=== PATIENT | male | born 1960 | race Caucasian/White ===

== ENCOUNTER → 2016-08-20 | Outpatient (CLI) | payer BC ==
--- NOTE | 2016-08-20 11:30 | NM ---
EXAMINATION TYPE: NM stress cardiolite complete DATE OF EXAM: 08/20/2016 10:02 AM COMPARISON: Prior nuclear medicine stress test February 17, 2014. HISTORY: History of hypertension, hypercholesteremia, tobacco use, diabetes, prior single vessel CABG , prior angioplasty, and prior heart attack. Coronary atherosclerosis per order. TECHNIQUE: After the intravenous administration of 10.4 mCi Tc 99m Sestamibi - Rest images obtained 45 minutes post injection. The patient exercised using a LEONIDAS protocol and 1 minute prior to peak exercise was injected with 27.5 mCi Tc 99m Sestamibi - Stress images obtained 30 minutes post injecti on. FINDINGS: Targeted heart rate was achieved during performance of the study. Review of stress and rest SPECT eddie ges demonstrates no distinct perfusion abnormality. Gated analysis shows normal wall motion with an estimated left ventricular ejection fraction of 64 %. IMPRESSION: No scintigraphic evidence for reversible ischemia
--- NOTE | 2016-08-20 13:38 | EST ---
DATE OF SERVICE: 08/20/2016 AGE: 56Y SEX: M HT: 6' WT: 258 lbs. Protocol Dany: X Other: Stress Cardiolite Stage: 2 Dur. of Exercise: 8:15 *Heart Rate Blood Pressure *Rest: 71 Rest: 142/77 * *Max. Achieved: 148 Maximum BP: 215/68 85% PMHR: 139 100% PMHR: 163 *METS: 9.9 INDICATIONS: Physical. MEDICATIONS: - Patient was exercised for a total period of 8 minutes. Peak heart rate of 148 was achieved. Maximum blood pressure of 215/68 mmHg was noted. Resting EKG shows normal sinus rhythm with normal IA interval and QRS duration and normal ST-T waves. No ST-segment depression suggestive of ischemia is noted. The patient did not complain of any chest pain during the test. FINAL IMPRESSION: 1. This stress test is not suggestive of ischemia. 2. Patient's exercise tolerance is normal. 3. Patient did not complain of any anginal pain during the test.
== END ==
LOC: RADNMMAIN 07:48
PROVIDERS: ATTEND Family Medicine
DX: I25.10 Atherosclerotic heart disease of native coronary artery without angina pectoris (principal)
CPT/HCPCS: 93017; 78452; A9500

== ENCOUNTER → 2017-02-01 | Outpatient (CLI) | payer BC ==
[2017-02-01 10:38] LABS: ALT 56 U/L (21-72); AST 24 U/L (17-59); Alkaline Phosphatase 86 U/L (38-126); Anion Gap 10 mmol/L; Blood Urea Nitrogen 17 mg/dL (9-20); Calcium 10.2 mg/dL (8.4-10.2); Carbon Dioxide 27 mmol/L (22-30); Chloride 104 mmol/L (98-107); Cholesterol 151 mg/dL (<200); Glucose 122 mg/dL (74-99); HDL Cholesterol 46 mg/dL (40-60); Non-African American GFR(MDRD) >60 (>60 ml/min/1.73 sqM); Potassium 4.2 mmol/L (3.5-5.1); Sodium 141 mmol/L (137-145); Total Bilirubin 0.6 mg/dL (0.2-1.3); Total Protein 7.2 g/dL (6.3-8.2)
[2017-02-01 11:03] LABS: Prostate Specific Antigen 0.72 ng/mL (0.00-4.00)
[2017-02-01 11:38] LABS: Hemoglobin A1C 6.6 % (4.2-6.1)
== END | disposition home or self-care (01) ==
LOC: LABWHC1 08:32
PROVIDERS: ATTEND Family Medicine
DX: N40.0 Benign prostatic hyperplasia without lower urinary tract symptoms (principal); E11.65 Type 2 diabetes mellitus with hyperglycemia
CPT/HCPCS: 36415; 80053; 80061; 83036; 84153

== ENCOUNTER → 2017-09-03 | Outpatient (CLI) | payer BC ==
[2017-09-03 08:09] LABS: Basophils % (A) 1 %; Eosinophils # (A) 0.1 k/uL (0-0.7); Eosinophils % (A) 1 %; HCT 43.6 % (39.0-53.0); HGB 15.1 gm/dL (13.0-17.5); Lymphocytes # (A) 2.1 k/uL (1.0-4.8); Lymphocytes % (A) 27 %; MCH 30.9 pg (25.0-35.0); MCHC 34.7 g/dL (31.0-37.0); MCV 89.2 fL (80.0-100.0); Monocytes # (A) 0.5 k/uL (0-1.0); Monocytes % (A) 7 %; Neutrophils # (A) 4.9 k/uL (1.3-7.7); Neutrophils % (A) 62 %; Platelet Count 290 k/uL (150-450); RBC 4.89 m/uL (4.30-5.90); WBC 7.9 k/uL (3.8-10.6)
[2017-09-03 08:32] LABS: ALT 38 U/L (21-72); AST 24 U/L (17-59); Albumin 4.5 g/dL (3.5-5.0); Alkaline Phosphatase 83 U/L (38-126); Anion Gap 14 mmol/L; Blood Urea Nitrogen 15 mg/dL (9-20); Carbon Dioxide 24 mmol/L (22-30); Chloride 104 mmol/L (98-107); Cholesterol 149 mg/dL (<200); Glucose 136 mg/dL (74-99); HDL Cholesterol 39 mg/dL (40-60); LDL Cholesterol,Calculated 85 mg/dL (0-99); Potassium 4.1 mmol/L (3.5-5.1); Sodium 142 mmol/L (137-145); Total Bilirubin 0.7 mg/dL (0.2-1.3); Total Protein 6.7 g/dL (6.3-8.2); Triglycerides 125 mg/dL (<150)
[2017-09-03 18:42] LABS: Hemoglobin A1C 7.1 % (4.0-6.0)
== END | disposition home or self-care (01) ==
LOC: LABWHC1 07:37
PROVIDERS: ATTEND Family Medicine
DX: E11.65 Type 2 diabetes mellitus with hyperglycemia (principal)
CPT/HCPCS: 36415; 80053; 80061; 82043; 82570; 83036; 84443; 85025

== ENCOUNTER → 2018-06-08 | Outpatient (CLI) | payer BC ==
[2018-06-08 17:52] LABS: Albumin 4.6 g/dL (3.80-4.90); Albumin/Globulin Ratio 2.71 (1.20-2.10); Anion Gap 7.1 mmol/L (4.00-12.00); Calcium 9.6 mg/dL (8.7-10.3); Carbon Dioxide 25.9 mmol/L (21.6-31.8); Globulin 1.7 g/dL (1.6-3.3); LDL Cholesterol,Calculated 85.8 mg/dL (0.0-131.0); Potassium 4.3 mmol/L (3.5-5.5); Total Bilirubin 0.5 mg/dL (0.3-1.2); Total Protein 6.3 g/dL (6.2-8.2); VLDL Calculation 20.2 mg/dL (5.00-40.00)
[2018-06-08 18:24] LABS: Hemoglobin A1C 7.9 % (4.0-6.0)
== END | disposition home or self-care (01) ==
LOC: LABWHC1 08:01
PROVIDERS: ATTEND Family Medicine
DX: Z00.00 Encounter for general adult medical examination without abnormal findings (principal); E11.65 Type 2 diabetes mellitus with hyperglycemia
CPT/HCPCS: 36415; 80053; 80061; 83036; 84153

== ENCOUNTER → 2018-12-21 | Outpatient (CLI) | payer BC ==
[2018-12-21 07:13] LABS: Basophils % (A) 0 %; Eosinophils # (A) 0.1 k/uL (0-0.7); Eosinophils % (A) 2 %; HCT 49.8 % (39.0-53.0); HGB 16.6 gm/dL (13.0-17.5); Lymphocytes % (A) 25 %; MCH 30.9 pg (25.0-35.0); MCHC 33.4 g/dL (31.0-37.0); MCV 92.6 fL (80.0-100.0); Mean Platelet Volume 7.1; Monocytes # (A) 0.5 k/uL (0-1.0); Monocytes % (A) 6 %; Neutrophils % (A) 64 %; Platelet Count 303 k/uL (150-450); RBC 5.37 m/uL (4.30-5.90); RDW 13.4 % (11.5-15.5); WBC 7.9 k/uL (3.8-10.6)
[2018-12-21 11:30] LABS: Albumin 4.8 g/dL (3.80-4.90); Albumin/Globulin Ratio 2.67 (1.60-3.17); Anion Gap 8.3 mmol/L (4.00-12.00); BUN/Creat Ratio 22.22 Ratio (12.00-20.00); Calcium 9.8 mg/dL (8.7-10.3); Carbon Dioxide 25.7 mmol/L (21.6-31.8); Globulin 1.8 g/dL (1.6-3.3); Non-African American GFR(CKD) 93.2 (60.0-200.0); Potassium 4.1 mmol/L (3.5-5.5); Total Bilirubin 0.7 mg/dL (0.3-1.2); Total Protein 6.6 g/dL (6.2-8.2)
[2018-12-21 11:31] LABS: Chol/HDL Ratio 3.95
[2018-12-21 11:55] LABS: Urine Creatinine 98.9 mg/dL
[2018-12-21 15:04] LABS: Hemoglobin A1C 10.2 % (4.0-6.0)
== END | disposition home or self-care (01) ==
LOC: LABWHC1 06:31
PROVIDERS: ATTEND Family Medicine
DX: E11.65 Type 2 diabetes mellitus with hyperglycemia (principal)
CPT/HCPCS: 36415; 80053; 80061; 82043; 82570; 83036; 84443; 85025

== ENCOUNTER 2019-01-26 07:46 | Observation (INO) | payer BC ==
[2019-01-26] MEDS ORDERED: NITROGLYCERIN OINT 1 INCH/GM PACKET TOPICAL STA (07:53)
--- NOTE | 2019-01-26 07:56 | ED ---
Chest Pain HPI - General Stated Complaint: Chest pain Time Seen by Provider: 01/26/19 07:52 Source: patient, EMS, RN notes reviewed Mode of arrival: EMS Limitations: no limitations - History of Present Illness Initial Comments: This a 58-year-old male presents emergency department via EMS chief complaint of chest pain. Patient states symptoms started proximal one hour prior arrival. Patient states that he developed this chest discomfort at work. He states that he ended up taking 3 nitro and states that it did alleviate his symptoms. Patient states that he was given aspirin by EMS. Patient does have a history of VT in 2017 with stent placement in his distal RCA. Patient states his rn imaging was Dr. Aguilar. Patient denies any current shortness breath, nausea, vomiting, dizziness, lightheadedness. Patient does have a history of hypertension hyperlipidemia, diabetes and does take Plavix, aspirin, lisinopril, metformin - Related Data Home Medications Medication Instructions Recorded Confirmed Aspirin 81 mg PO DAILY 09/14/15 01/26/19 Atorvastatin [Lipitor] 80 mg PO HS 09/14/15 01/26/19 Clopidogrel [Plavix] 75 mg PO DAILY 09/14/15 01/26/19 Fish Oil/Dha/Epa [Fish Oil 1,200 1 cap PO DAILY 09/14/15 01/26/19 mg Fish Oil] Lisinopril [Zestril] 10 mg PO BID 09/14/15 01/26/19 Multivitamin [Men's Multi-Vitamin] 1 tab PO DAILY 09/14/15 01/26/19 Hydrochlorothiazide 25 mg PO DAILY 01/26/19 01/26/19 Nitroglycerin Sl Tabs [Nitrostat] 0.4 mg SUBLINGUAL Q5M PRN 01/26/19 01/26/19 metFORMIN HCL [Glucophage] 1,000 mg PO BID 01/26/19 01/26/19 Allergies Allergy/AdvReac Type Severity Reaction Status Date / Time Penicillins Allergy Swelling Verified 01/26/19 08:16 OF TONGUE, THROAT, SOB Sulfa (Sulfonamide Allergy Rash/Hives Verified 01/26/19 08:16 Antibiotics) varenicline [From Chantix] Allergy Unknown Verified 01/26/19 08:18 Review of Systems ROS Statement: Those systems with pertinent positive or pertinent negative responses have been documented in the HPI. ROS Other: All systems not noted in ROS Statement are negative. EKG Findings - EKG Comments: EKG Findings:: EKG performed at 8:00 normal sinus rhythm rate of 70. 168 QRS 112 QT/QTC 388/419 Past Medical History Past Medical History: Hyperlipidemia, Hypertension, Myocardial Infarction (VT) Last Myocardial Infarction Date:: 11/27/06 History of Any Multi-Drug Resistant Organisms: None Reported Past Surgical History: Heart Catheterization With Stent, Hernia Repair, Orthopedic Surgery Additional Past Surgical History / Comment(s): LEFT KNEE,LEFT ANKLE Past Anesthesia/Blood Transfusion Reactions: No Reported Reaction Date of Last Stent Placement:: 11/27/06 Past Psychological History: No Psychological Hx Reported Smoking Status: Current every day smoker Past Alcohol Use History: None Reported Additional Past Alcohol Use History / Comment(s): STARTED SMOKING AGE 16- SMOKES 3/4PPD Past Drug Use History: None Reported - Past Family History Mother Family Medical History: Cancer Father Family Medical History: Cancer Additional Family Medical History / Comment(s): LUNG CANCER General Exam General appearance: alert, in no apparent distress Head exam: Present: atraumatic, normocephalic, normal inspection Eye exam: Present: normal appearance, PERRL, EOMI. Absent: scleral icterus, conjunctival injection, periorbital swelling ENT exam: Present: normal exam, mucous membranes moist Neck exam: Present: normal inspection, full ROM. Absent: tenderness, meningismus, lymphadenopathy Respiratory exam: Present: normal lung sounds bilaterally. Absent: respiratory distress, wheezes, rales, rhonchi, stridor Cardiovascular Exam: Present: regular rate, normal rhythm, normal heart sounds. Absent: systolic murmur, diastolic murmur, rubs, gallop, clicks GI/Abdominal exam: Present: soft, normal bowel sounds. Absent: distended, tenderness, guarding, rebound, rigid Neurological exam: Present: alert Skin exam: Present: warm, dry, intact, normal color. Absent: rash Course Vital Signs 01/26/19 08:13 Temperature 98.4 F Pulse Rate 68 Respiratory 18 Rate Blood Pressure 125/79 O2 Sat by Pulse 95 Oximetry Chest Pain MDM - MDM 58-year-old male presented with chief complaint of chest discomfort. Patient had relief with nitro at this time. Patient was given nitro paste. Patient's lab work is unremarkable. Patient has a significant cardiac history who be admitted for cardiac observation, Cardiology Evaluation. Patient family updated and results. Disposition Clinical Impression: Chest pain Disposition: ADMITTED IP TO THIS HOSP Condition: Fair Referrals: Cornelio Chowdhury MD [Primary Care Provider] - 1-2 days
[2019-01-26 08:35] LABS: African American GFR (CKD) >90 (>60 ml/min/1.73 sqM); Anion Gap 10 mmol/L; Blood Urea Nitrogen 15 mg/dL (9-20); Calcium 9.3 mg/dL (8.4-10.2); Carbon Dioxide 22 mmol/L (22-30); Chloride 106 mmol/L (98-107); Glucose 180 mg/dL (74-99); Sodium 138 mmol/L (137-145); Total Protein 6.5 g/dL (6.3-8.2)
[2019-01-26 08:36] LABS: Basophils % (A) 0 %; Eosinophils # (A) 0.1 k/uL (0-0.7); Eosinophils % (A) 1 %; HCT 43.8 % (39.0-53.0); HGB 15.3 gm/dL (13.0-17.5); Lymphocytes # (A) 1.7 k/uL (1.0-4.8); Lymphocytes % (A) 20 %; MCH 31.4 pg (25.0-35.0); MCHC 34.9 g/dL (31.0-37.0); MCV 90.2 fL (80.0-100.0); Monocytes # (A) 0.5 k/uL (0-1.0); Monocytes % (A) 6 %; Neutrophils % (A) 70 %; Platelet Count 264 k/uL (150-450); RBC 4.85 m/uL (4.30-5.90); RDW 13.1 % (11.5-15.5); WBC 8.5 k/uL (3.8-10.6)
--- NOTE | 2019-01-26 08:39 | XR ---
EXAMINATION TYPE: XR chest 2V DATE OF EXAM: 01/26/2019 COMPARISON: Chest x-ray June 03, 2009 HISTORY: History of coronary stent with chest pain. TECHNIQUE: Frontal and lateral views of the chest are obtained. FINDINGS: There is some chronic parenchymal change without suspicious new focal air space opacity, p leural effusion, or pneumothorax seen. The cardiac silhouette size is enlarged. Stable prominent le ft inferior cardiac silhouette likely reflecting prominent pericardial fat pad. Disease can be confir med with CT study if desired. Slightly ectatic and atherosclerotic aorta. The osseous structures are intact. IMPRESSION: Cardiomegaly without acute pulmonary process.
[2019-01-26 08:41] LABS: INR 0.9 (<1.2); Prothrombin Time 9.9 sec (9.0-12.0)
[2019-01-26 08:43] LABS: AST 29 U/L (17-59); Magnesium 1.5 mg/dL (1.6-2.3); Potassium 4.2 mmol/L (3.5-5.1)
[2019-01-26 08:44] LABS: ALT 44 U/L (21-72); Alkaline Phosphatase 66 U/L (38-126); Partial Thromboplastin Time 21.9 sec (22.0-30.0)
[2019-01-26] MEDS ORDERED: NITROGLYCERIN SL TABS 0.4 MG TAB SUBLINGUAL PRN ×2 (09:23→10:40)
[2019-01-26] MEDS ORDERED: HEPARIN SODIUM,PORCINE 5,000 UNIT/ML 1 ML VIAL IV ONE (09:23)
[2019-01-26] MEDS ORDERED: HEPARIN SOD,PORK IN 0.45% NACL 25,000 UNIT in 0.45% NACL 1 250ML.BAG IV SCH (09:30)
[2019-01-26] MEDS ORDERED: ATORVASTATIN 80 MG TAB PO STA ×2 (10:33→10:40)
[2019-01-26 10:40] VITALS: RESP 16
[2019-01-26] MEDS ORDERED: ASPIRIN 325 MG TAB PO STA (10:40)
[2019-01-26] MEDS ORDERED: ALPRAZolam 0.25 MG TAB PO PRN (10:40)
[2019-01-26] MEDS ORDERED: ALPRAZolam 0.5 MG TAB PO PRN (10:40)
[2019-01-26] MEDS ORDERED: SODIUM CHLORIDE 0.9% 1,000 ML in EMPTY BAG 1 BAG IV ONE (10:40)
--- NOTE | 2019-01-26 10:40 | P.CRDCN ---
History of Present Illness Consult date: 01/26/19 Requesting physician: Lewis Cantu Consult reason: chest pain Chief complaint: Chest pain History of present illness: This is a 58-year-old gentleman with history of coronary artery disea se and prior RCA stenting several years ago, history of hypertension, hyperlipidemia, diabetes, and nicotine dependence. He was apparently at work this morning, started to develop midsternal chest pain and pressure with significant diaphoresis. He did take 3 total sublingual nitroglycerin, finally got some minimal relief with the third nitro and on arrival here continue to have some chest pressure however mild as compared to initially. Patient was also given 4 baby aspirins in the EMS. At the time of our examination in the emergency room he is rating his chest pressure at 3 on a scale of 1-10. Patient does state that the symptoms reminded him of what he had prior to his stent placement in the past. Blood pressure 125/78 with a heart rate in the 60s, 95% on 2 L of oxygen. White blood cell count 8.5, hemoglobin 15.3, platelet count 264. Sodium 138, potassium 4.2, BUN 15 and creatinine 0.7, magnesium is 1.5. Initial troponin 0.012. EKG shows a normal sinus rhythm with no acute changes. Chest x-ray shows cardiomegaly without any acute process. The patient was seen in consultation by Dr. Patton. He was recommended to undergo an urgent cardiac catheterization. The risks and the benefits were explained to the patient in detail and he is willing to proceed. Past Medical History Past Medical History: Hyperlipidemia, Hypertension, Myocardial Infarction (DE) Last Myocardial Infarction Date:: 11/27/06 History of Any Multi-Drug Resistant Organisms: None Reported Past Surgical History: Heart Catheterization With Stent, Hernia Repair, Orthopedic Surgery Additional Past Surgical History / Comment(s): LEFT KNEE,LEFT ANKLE Past Anesthesia/Blood Transfusion Reactions: No Reported Reaction Date of Last Stent Placement:: 11/27/06 Past Psychological History: No Psychological Hx Reported Smoking Status: Current every day smoker Past Alcohol Use History: None Reported Additional Past Alcohol Use History / Comment(s): STARTED SMOKING AGE 16- SMOKES 3/4PPD Past Drug Use History: None Reported - Past Family History Mother Family Medical History: Cancer Father Family Medical History: Cancer Additional Family Medical History / Comment(s): LUNG CANCER Medications and Allergies Home Medications Medication Instructions Recorded Confirmed Type Aspirin 81 mg PO DAILY 09/14/15 01/26/19 History Atorvastatin [Lipitor] 80 mg PO HS 09/14/15 01/26/19 History Clopidogrel [Plavix] 75 mg PO DAILY 09/14/15 01/26/19 History Fish Oil/Dha/Epa [Fish Oil 1,200 1 cap PO DAILY 09/14/15 01/26/19 History mg Fish Oil] Lisinopril [Zestril] 10 mg PO BID 09/14/15 01/26/19 History Multivitamin [Men's Multi-Vitamin] 1 tab PO DAILY 09/14/15 01/26/19 History Hydrochlorothiazide 25 mg PO DAILY 01/26/19 01/26/19 History Nitroglycerin Sl Tabs [Nitrostat] 0.4 mg SUBLINGUAL Q5M PRN 01/26/19 01/26/19 History metFORMIN HCL [Glucophage] 1,000 mg PO BID 01/26/19 01/26/19 History Allergies Allergy/AdvReac Type Severity Reaction Status Date / Time Penicillins Allergy Swelling Verified 01/26/19 08:16 OF TONGUE, THROAT, SOB Sulfa (Sulfonamide Allergy Rash/Hives Verified 01/26/19 08:16 Antibiotics) varenicline [From Chantix] Allergy Unknown Verified 01/26/19 08:18 Physical Exam Vitals: Vital Signs Temp Pulse Resp BP Pulse Ox 01/26/19 08:13 98.4 F 68 18 125/79 95 Intake and Output 01/25/19 01/26/19 01/26/19 22:59 06:59 14:59 Other: Weight 117.027 kg PHYSICAL EXAMINATION: GENERAL: 58-year-old gentleman in no acute distress at the time of my examination HEENT: Head is atraumatic, normocephalic. Pupils equal, round. Sclera anicteric. Conjunctiva are clear. Mucous membranes of the mouth are moist. Neck is supple. There is no elevated jugular venous pressure. No carotid bruit is heard. HEART EXAMINATION: Heart S1, S2 normal. No murmur or gallop heard. CHEST EXAMINATION: Lungs are clear to auscultation and precussion. No chest wall tenderness is noted on palpation or with deep breathing. ABDOMEN: Soft, obese, nontender. Bowel sounds are heard. No organomegaly noted. EXTREMITIES: 2+ peripheral pulses with no evidence of peripheral edema and no calf tenderness noted. NEUROLOGIC patient is awake, alert and oriented 3 . . Results 01/26/19 08:15 01/26/19 08:15 Cardiac Enzymes 01/26/19 01/26/19 Range/Units 08:15 08:15 AST 29 (17-59) U/L Troponin I <0.012 (0.000-0.034) ng/mL Coagulation 01/26/19 Range/Units 08:15 PT 9.9 (9.0-12.0) sec APTT 21.9 L (22.0-30.0) sec CBC 01/26/19 Range/Units 08:15 WBC 8.5 (3.8-10.6) k/uL RBC 4.85 (4.30-5.90) m/uL Hgb 15.3 (13.0-17.5) gm/dL Hct 43.8 (39.0-53.0) % Plt Count 264 (150-450) k/uL Comprehensive Metabolic Panel 01/26/19 Range/Units 08:15 Sodium 138 (137-145) mmol/L Potassium 4.2 (3.5-5.1) mmol/L Chloride 106 (98-107) mmol/L Carbon Dioxide 22 (22-30) mmol/L BUN 15 (9-20) mg/dL Creatinine 0.70 (0.66-1.25) mg/dL Glucose 180 H (74-99) mg/dL Calcium 9.3 (8.4-10.2) mg/dL AST 29 (17-59) U/L ALT 44 (21-72) U/L Alkaline Phosphatase 66 (38-126) U/L Total Protein 6.5 (6.3-8.2) g/dL Albumin 4.0 (3.5-5.0) g/dL Current Medications Generic Name Dose Route Start Last Admin Trade Name Freq PRN Reason Stop Dose Admin Aspirin 325 mg 01/27/19 09:00 Aspirin PO DAILY MANNY Heparin Sodium/Sodium Chloride 250 mls @ 10.018 mls/hr 01/26/19 09:30 01/26/19 10:15 25,000 unit/ Sodium Chloride IV 8.56 units/kg/hr .Q24H MANNY 10.018 mls/hr Administration Protocol 8.56 UNITS/KG/HR Magnesium Sulfate/Dextrose 1 100 mls @ 100 mls/hr 01/26/19 10:30 gm/ IV Solution IVPB 01/26/19 12:29 Q1H MANNY Nitroglycerin 0.4 mg 01/26/19 09:23 Nitrostat SUBLINGUAL Q5M PRN Chest Pain Intake and Output 01/25/19 01/26/19 01/26/19 22:59 06:59 14:59 Other: Weight 117.027 kg Patient Weight 01/27/19 06:59 Weight 117.027 kg 01/26/19 08:15 01/26/19 08:15 EKG Interpretations (text) Initial EKG shows a normal sinus rhythm with no acute changes. Assessment and Plan Plan: Assessment and plan #1 chest pressure and heaviness with radiation to the jaw, associated diaphoresis, symptoms concerning for acute coronary syndrome. Initial troponin is negative. An EKG shows normal sinus rhythm with no acute changes. #2 known history of coronary artery disease with prior RCA stenting #3 hypertension #4 diabetes #5 hyperlipidemia #6 nicotine dependence Plan Patient will be initiated on heparin, he will be given 80 mg of Lipitor. He's been advised to undergo urgent cardiac catheterization, the risks and the benefits were explained to the patient and his family in detail, this will be performed this morning by Dr. Patton. Further recommendations will be based on these findings and the patient's clinical course. DNP note has been reviewed, I agree with a documented findings and plan of care. Patient was seen and examined.
--- NOTE | 2019-01-26 10:48 | ECHOF ---
Referral Reason:chest pain MEASUREMENTS -------- HEIGHT: 182.9 cm WEIGHT: 117.0 kg BP: 125/79 RVIDd: 3.3 cm (< 3.3) IVSd: 1.5 cm (0.6 - 1.1) LVIDd: 5.5 cm (3.9 - 5.3) LVPWd: 1.4 cm (0.6 - 1.1) IVSs: 2.3 cm LVIDs: 4.5 cm LVPWs: 1.7 cm LA Diam: 3.5 cm (2.7 - 3.8) LAESV Index (A-L): 20.38 ml/m Ao Diam: 3.0 cm (2.0 - 3.7) AV Cusp: 2.0 cm (1.5 - 2.6) MV EXCURSION: 14.577 mm (> 18.000) MV EF SLOPE: 27 mm/s (70 - 150) EPSS: 0.7 cm MV E Nader: 0.58 m/s MV DecT: 277 ms MV A Nader: 0.56 m/s MV E/A Ratio: 1.03 AR PHT: 1212 ms RAP: 5.00 mmHg RVSP: 25.63 mmHg FINDINGS -------- Sinus rhythm. This was a technically difficult study with suboptimal views. The left ventricular size is normal. There is moderate concentric left ventricular hypertrophy. O verall left ventricular systolic function is mildly impaired with, an EF between 45 - 50 %. Apical lateral LV wall motion is hypokinetic. The right ventricle is mildly enlarged. Normal LA size by volume 22+/-6 ml/m2. The right atrial size is normal. 3 ml of Lumason was utilized for enhancement of images. Interatrial and interventricular septum intact. There is mild aortic valve sclerosis. There is [id number] aortic regurgitation. Mild mitral annular calcification present. Mild tricuspid regurgitation present. Right ventricular systolic pressure is normal at < 35 mmHg. The pulmonic valve was not well visualized. There is no pulmonic regurgitation present. The aortic root size is normal. IVC Not well visulized. There is no pericardial effusion. CONCLUSIONS -------- 1. Sinus rhythm. 2. This was a technically difficult study with suboptimal views. 3. The left ventricular size is normal. 4. There is moderate concentric left ventricular hypertrophy. 5. Overall left ventricular systolic function is mildly impaired with, an EF between 45 - 50 %. 6. Apical lateral LV wall motion is hypokinetic. 7. The right ventricle is mildly enlarged. 8. Normal LA size by volume 22+/-6 ml/m2. 9. 3 ml of Lumason was utilized for enhancement of images. 10. There is mild aortic valve sclerosis. 11. There is [id number] aortic regurgitation. 12. Mild mitral annular calcification present. 13. Mild tricuspid regurgitation present. 14. Right ventricular systolic pressure is normal at < 35 mmHg. 15. The pulmonic valve was not well visualized. 16. The aortic root size is normal. 17. IVC Not well visulized. 18. There is no pericardial effusion. ATHLETICS DIRECTOR: Megan Lebron RDCS
[2019-01-26] MEDS ORDERED: IV FLUID CONTINUATION 1,000 ML IV ONE (11:18)
[2019-01-26] MEDS ORDERED: fentaNYL (PF) 50 MCG/ML 2 ML AMP ONE (11:29)
[2019-01-26] MEDS ORDERED: LIDOCAINE 1% INJ 10MG/ML (20 ML MDV) SQ ONE (11:32)
[2019-01-26] MEDS ORDERED: fentaNYL (PF) 50 MCG/ML 2 ML AMP IV ONE (11:32)
[2019-01-26] MEDS ORDERED: MIDAZOLAM (PF) 2 MG/2 ML VIAL IV ONE (11:33)
[2019-01-26] MEDS ORDERED: VERAPAMIL SYRINGE (5 MG/10 ML) INTRAARTER ONE (11:41)
[2019-01-26] MEDS ORDERED: HEPARIN SODIUM 1,000 UN/ML (10ML VL) IV ONE (11:42)
[2019-01-26] MEDS ORDERED: IOPAMIDOL-370 125ML BTL INJ ONE (11:56)
[2019-01-26] MEDS ORDERED: RX INFO: IV CONTRAST WAS GIVEN 1 EACH MISC MISCELLANE PRN (12:07)
[2019-01-26] MEDS ORDERED: SODIUM CHLORIDE 0.9% 1,000 ML IV SCH (12:15)
--- NOTE | 2019-01-26 14:20 | P.CARDCATH ---
Date of Procedure: 01/26/19 Preoperative Diagnosis: Unstable angina Postoperative Diagnosis: Stable coronary artery disease with patent stent in the RCA with mild stenosis Procedure(s) Performed: Left heart catheterization with left ventriculography Description of Procedure: HISTORY: Mr. Estes is a 58-year-old gentleman with history of ischemic heart disease and previous stent placement of the RCA done several years ago. Patient has been stable. Patient continues to smoke. Today patient came to the emergency room with complaints of severe chest pain and jaw pain which was similar to symptoms that he had previously. His EKG did not reveal any acute changes. Patient's pain was relieved partially with nitroglycerin. Patient is advised to have a cardiac catheterization for definitive diagnosis. CONSENT:I have discussed the risks, benefits and alternative therapies for the above-mentioned procedure and for both sedation/analgesia as well as necessary blood product administration, if indicated, as they pertain to this patient. The patient has indicated understanding and acceptance of the risks and procedures discussed. PROCEDURE: Patient was brought to the lab in a fasting state. Patient was given some IV sedation. The right wrist is infiltrated with lidocaine and right radial artery was entered using Seldinger technique. A 6-Maori catheter was left in place and selective coronary arteriography and left ventriculography was performed. Patient tolerated the procedure well. TR band was applied for hemostasis. No immediate complications were noted and patient was transferred to [facility] in a stable condition Conscious Sedation: Versed 2mg Fentanyl 50 g Duration 22minutes HEMODYNAMICS: The aortic pressure was about 130/70. Left ventricle end- diastolic pressure is 8. There was no gradient across the aortic valve SELECTIVE CORONARY ARTERIOGRAPHY: LEFT MAIN: This is normal in length and free of any significant occlusive disease THE LEFT ANTERIOR DESCENDING CORONARY ARTERY:. This is a good caliber vessel giving rise to small septal and diagonal branches. The LAD and its branches are free of any occlusive disease. There is a large size diagonal branch which is also free of occlusive disease THE LEFT CIRCUMFLEX AND IS CORONARY ARTERY:. This is a moderate caliber vessel giving rise to good-sized OM branch and good-sized PLV branch. The circumflex coronary artery and branches are free of occlusive disease THE RIGHT CORONARY ARTERY:. This is a good caliber vessel giving rise to good caliber PDA and PLV branches. The right coronary artery is patent at the site of previous stent placement with mild irregularities and mild stenosis 30% luminal narrowing LEFT VENTRICULOGRAPHY:. This revealed normal-sized cardiac silhouette with good systolic function without any segmental wall motion defects FINAL IMPRESSION:. Mild coronary artery disease with a irregularities involving the distal RCA at the site of previous stent placement and 30% luminal narrowing PLAN: Maximum medical therapy and risk factor modification PROGNOSIS:. Fair
[2019-01-26 14:53] VITALS: TEMP 98.5
[2019-01-26 15:06] VITALS: BMI 34.9
[2019-01-26] MEDS: MAGNESIUM SULFATE-D5W PMX 1 GM in DEXTROSE/WATER 1 100ML.BAG IVPB SCH ×2 (15:53→17:15)
[2019-01-26 16:01] VITALS: PULSE 81
[2019-01-26 16:47] LABS: Glucose,Whole Blood 155 mg/dL (75-99)
[2019-01-26 17:18] VITALS: BP 113/66
[2019-01-26] MEDS ORDERED: ATORVASTATIN 80 MG TAB PO SCH (21:00)
[2019-01-26] MEDS ORDERED: LISINOPRIL 10 MG TAB PO SCH (21:00)
--- NOTE | 2019-01-26 23:03 | HP ---
HISTORY AND PHYSICAL COMBINED HISTORY AND PHYSICAL/DISCHARGE SUMMARY: CHIEF COMPLAINT: Chest pain. HISTORY OF PRESENT ILLNESS: This 58-year-old gentleman with a past medical history of hypertension, hyperlipidemia, history of myocardial infarction, CAD with stent, being followed by Dr. Chowdhury in the outpatient setting was admitted with chest pain. The pain started about 1 hour prior to the emergency room and started at work. The patient took 3 nitros which did not alleviate symptoms and the patient taken to [facility] and admitted for further evaluation and treatment. The patient underwent cardiac catheterization by Dr. Patton and cardiac cath showed mild coronary disease with irregularities involving the distal RCA at the site of previous stent placement with 30% luminal narrowing and the patient being closely monitored at this time. Cardiology has cleared the patient for discharge today. There is no history of fever, rigors or chills. No history of headache, loss of consciousness or seizures at this time. PAST MEDICAL HISTORY: History of hypertension, hyperlipidemia, myocardial infarction, history of RCA/ stent. MEDICATIONS: 1. Zestril 10 mg p.o. daily. 2. Hydrochlorothiazide 25 mg p.o. daily. 3. Fish oil. 4. Lipitor 80 mg. 5. Glucophage 1000 mg b.i.d. 6. Nitrostat 0.4 sublingual p.r.n. 7. Multivitamins one p.o. daily. 8. Plavix. 9. Aspirin 81 mg p.o. daily. ALLERGIES: PENICILLIN, SULFA AND CHANTIX. FAMILY HISTORY: History of lung cancer. SOCIAL HISTORY: History of continued smoking. Patient is trying to cut down. No history of alcohol intake. Patient also noted some extra stress at work also. REVIEW OF SYSTEMS: ENT: No diminished vision. No diminished hearing. CARDIOVASCULAR system as mentioned earlier. GI no nausea or vomiting. no dysuria or hematuria. NERVOUS SYSTEM: No numbness or weakness. ALLERGY/IMMUNOLOGY: No asthma or hay fever. MUSCULOSKELETAL as mentioned earlier. HEMATOLOGY/ONCOLOGY: No history of anemia. ENDOCRINE: No history of diabetes or hypothyroidism. CONSTITUTIONAL: As mentioned earlier. DERMATOLOGY: Negative. RHEUMATOLOGY: Negative. PSYCHIATRIC: Negative. PHYSICAL EXAMINATION: The patient is alert and oriented times three. Pulse 81. Blood pressure 102/58, respirations 20, temp 98.4, pulse ox 94% on room air. HEENT: Conjunctivae normal. Oral mucosa moist. NECK is no jugular venous distention. No carotid bruit. No lymph node enlargement. CARDIOVASCULAR SYSTEM: S1, S2. No S3, no S4. RESPIRATORY: Breath sounds diminished in the bases. No rhonchi. No crackles. ABDOMEN: Soft, nontender. No mass palpable. LEGS: No edema. No swelling. NERVOUS SYSTEM: Higher functions as mentioned earlier. Moves all four limbs. No focal motor or sensory deficits. Lymphatics: No lymph nodes palpable in the neck, axillae or groin. SKIN: No ulcer, no rashes. No bleeding. JOINTS: No active deforming arthropathy. LABS: CBC within normal limits and sodium 130. Potassium 4.2. Glucose 180, magnesium 1.5. ASSESSMENT: 1. Chest pain possible unstable angina, status post cardiac catheterization showing mild coronary artery disease. 2. Mild hypomagnesemia. 3. Hyperlipidemia. 4. Hypertension. 5. History of coronary artery disease/ myocardial infarction/stent. 6. History of hernia repair. 7. History of degenerative joint disease. 8. History of continued ongoing nicotine dependence. 9. Obesity with body mass index 35. RECOMMENDATIONS AND DISCUSSION: This 58-year-old gentleman who presented with multiple medical issues, at this time, the patient underwent cardiac catheterization with findings as above. The patient likely to have a coronary spasm resulting in unstable angina. Recommend to continue current medication. Imdur has been added to the current regimen. Recommend smoking cessation. Also closely follow with Dr. Chowdhury regarding the multiple complex medical issues. Follow with Cardiology as recommended. Please refer to the discharge reconciliation sheet for list of medications. MMODL / IJN: [id number] /
[2019-01-27] MEDS ORDERED: ASPIRIN 81 MG PO SCH (09:00)
[2019-01-27] MEDS ORDERED: NON FORMULARY DRUG (Fish Oil/Dha/Epa [Fish Oil 1,200 Mg Fish Oil] 1 CAP) PO SCH (09:00)
[2019-01-27] MEDS ORDERED: ASPIRIN 325 MG TAB PO SCH (09:00)
[2019-01-27] MEDS ORDERED: ISOSORBIDE MONONITRATE ER 30 MG TAB.ER.24H PO SCH (09:00)
[2019-01-27] MEDS ORDERED: LISINOPRIL 10 MG TAB PO SCH (09:00)
[2019-01-27] MEDS ORDERED: MULTIVITAMINS, THERA 1 EACH TAB PO SCH (09:00)
[2019-01-27] MEDS ORDERED: HYDROCHLOROTHIAZIDE 25 MG TAB PO SCH (09:00)
[2019-01-27] MEDS ORDERED: ATORVASTATIN 80 MG TAB PO SCH (21:00)
== END 2019-01-26 18:55 | disposition home or self-care (01) ==
LOC: EC 07:46 → 3SCARD 10:05
PROVIDERS: ADMIT Hospitalist; ATTEND Hospitalist
DX: R07.89 Other chest pain (principal); I25.10 Atherosclerotic heart disease of native coronary artery without angina pectoris; E83.42 Hypomagnesemia; I11.9 Hypertensive heart disease without heart failure; E78.5 Hyperlipidemia, unspecified; E11.9 Type 2 diabetes mellitus without complications; F17.210 Nicotine dependence, cigarettes, uncomplicated; R61 Generalized hyperhidrosis; M19.90 Unspecified osteoarthritis, unspecified site; E66.9 Obesity, unspecified; Z68.35 Body mass index [BMI] 35.0-35.9, adult; Z79.82 Long term (current) use of aspirin; Z79.02 Long term (current) use of antithrombotics/antiplatelets; Z79.84 Long term (current) use of oral hypoglycemic drugs; Z79.899 Other long term (current) drug therapy; Z88.0 Allergy status to penicillin; Z88.2 Allergy status to sulfonamides; Z88.8 Allergy status to other drugs, medicaments and biological substances; I25.2 Old myocardial infarction; Z95.5 Presence of coronary angioplasty implant and graft; Z80.1 Family history of malignant neoplasm of trachea, bronchus and lung
CPT/HCPCS: 96376; 96365; 99285; 36415; 93005; 93306; 93458; 85379; 83880; 80053; 83690; 83735; 84484; 85025; 85610; 85730; 71046; 99152; G0378; C1894; J1644 ×3; J2001; J3010; J3475; Q9950; Q9967; J2250

== ENCOUNTER → 2019-07-06 | Outpatient (CLI) | payer BC ==
[2019-07-06 10:37] LABS: HCT 48.7 % (39.0-53.0); HGB 16.3 gm/dL (13.0-17.5); MCH 30.2 pg (25.0-35.0); MCHC 33.6 g/dL (31.0-37.0); Mean Platelet Volume 8.1; Platelet Count 291 k/uL (150-450); RBC 5.41 m/uL (4.30-5.90); RDW 12.7 % (11.5-15.5); WBC 7.7 k/uL (3.8-10.6)
[2019-07-06 10:54] LABS: Appearance,Urine Clear (Clear); Bilirubin,Urine Negative (Negative); Blood,Urine Negative (Negative); Color,Urine Light Yellow; Glucose,Urine (UA) 3+ (Negative); Ketones,Urine Negative (Negative); Leukocyte Esterase,Urine Negative (Negative); Nitrite,Urine Negative (Negative); PH, Urine 6.5 (5.0-8.0); Protein,Urine Negative (Negative); Specific Gravity,Urine 1.006 (1.001-1.035); Urobilinogen,Urine <2.0 mg/dL (<2.0)
[2019-07-06 17:19] LABS: African American GFR (CKD) 95.1 (60.0-200.0); Albumin 4.9 g/dL (3.80-4.90); Albumin/Globulin Ratio 2.88 (1.60-3.17); Anion Gap 11.6 mmol/L (4.00-12.00); Calcium 10.1 mg/dL (8.7-10.3); Carbon Dioxide 26.4 mmol/L (21.6-31.8); Chol/HDL Ratio 4.18; Globulin 1.7 g/dL (1.6-3.3); LDL Cholesterol,Calculated 84.2 mg/dL (0.0-131.0); Potassium 4.5 mmol/L (3.5-5.5); Total Bilirubin 0.8 mg/dL (0.2-1.2); Total Protein 6.6 g/dL (6.2-8.2); VLDL Calculation 39.8 mg/dL (5.00-40.00)
[2019-07-06 19:20] LABS: Hemoglobin A1C 10.8 % (4.0-6.0)
== END | disposition home or self-care (01) ==
LOC: LABWHC1 07:52
PROVIDERS: ATTEND Family Medicine
DX: Z00.00 Encounter for general adult medical examination without abnormal findings (principal); E11.65 Type 2 diabetes mellitus with hyperglycemia
CPT/HCPCS: 36415; 80053; 80061; 81003; 83036; 84153; 85027

== ENCOUNTER → 2019-12-14 | Outpatient (CLI) | payer OTHER ==
[2019-12-14 10:02] LABS: Basophils # (A) 0.1 k/uL (0-0.2); Basophils % (A) 1 %; Eosinophils # (A) 0.2 k/uL (0-0.7); Eosinophils % (A) 2 %; HCT 49.5 % (39.0-53.0); HGB 15.8 gm/dL (13.0-17.5); Lymphocytes % (A) 21 %; MCH 29.7 pg (25.0-35.0); MCHC 31.9 g/dL (31.0-37.0); MCV 93.3 fL (80.0-100.0); Mean Platelet Volume 7.1; Monocytes # (A) 0.5 k/uL (0-1.0); Monocytes % (A) 5 %; Neutrophils # (A) 6.5 k/uL (1.3-7.7); Neutrophils % (A) 69 %; Platelet Count 272 k/uL (150-450); RDW 13.7 % (11.5-15.5); WBC 9.5 k/uL (3.8-10.6)
[2019-12-14 17:02] LABS: African American GFR (CKD) 112.5 (60.0-200.0); Albumin 4.8 g/dL (3.80-4.90); Albumin/Globulin Ratio 2.67 (1.60-3.17); Anion Gap 9.4 mmol/L (4.00-12.00); BUN/Creat Ratio 23.75 Ratio (12.00-20.00); Calcium 10.2 mg/dL (8.7-10.3); Carbon Dioxide 24.6 mmol/L (21.6-31.8); Chol/HDL Ratio 3.28; Globulin 1.8 g/dL (1.6-3.3); LDL Cholesterol,Calculated 89.4 mg/dL (0.0-131.0); Non-African American GFR(CKD) 97.1 (60.0-200.0); Potassium 4.2 mmol/L (3.5-5.5); Total Bilirubin 0.6 mg/dL (0.2-1.2); Total Protein 6.6 g/dL (6.2-8.2); VLDL Calculation 15.6 mg/dL (5.00-40.00)
[2019-12-14 18:01] LABS: Urine Creatinine 23.1 mg/dL
[2019-12-14 19:21] LABS: Hemoglobin A1C 6.1 % (4.0-6.0)
== END | disposition home or self-care (01) ==
LOC: LABWHC1 08:44
PROVIDERS: ATTEND Family Medicine
DX: E11.65 Type 2 diabetes mellitus with hyperglycemia (principal)
CPT/HCPCS: 36415; 80053; 80061; 82043; 82570; 83036; 84443; 85025

== ENCOUNTER → 2020-07-06 | Outpatient (CLI) | payer OTHER ==
[2020-07-06 11:35] LABS: African American GFR (CKD) 107.2 (60.0-200.0); Albumin 4.4 g/dL (3.80-4.90); Albumin/Globulin Ratio 1.83 (1.60-3.17); Anion Gap 6.9 mmol/L (4.00-12.00); BUN/Creat Ratio 23.33 Ratio (12.00-20.00); Calcium 10.2 mg/dL (8.7-10.3); Carbon Dioxide 26.1 mmol/L (21.6-31.8); Chol/HDL Ratio 3.53; Globulin 2.4 g/dL (1.6-3.3); Non-African American GFR(CKD) 92.5 (60.0-200.0); Potassium 4.2 mmol/L (3.5-5.5); Total Bilirubin 0.8 mg/dL (0.3-1.2); Total Protein 6.8 g/dL (6.2-8.2)
[2020-07-06 11:59] LABS: Hemoglobin A1C 6.4 % (4.0-6.0)
== END | disposition home or self-care (01) ==
LOC: LABWHC1 07:07
PROVIDERS: ATTEND Family Medicine
DX: E11.65 Type 2 diabetes mellitus with hyperglycemia (principal); Z12.5 Encounter for screening for malignant neoplasm of prostate
CPT/HCPCS: 80061; 80053; 83036; 36415; G0103

== ENCOUNTER → 2020-11-20 | Outpatient (CLI) | payer BC ==
[2020-11-20 12:37] LABS: C Reactive Protein <0.4 mg/dL (0.0-0.8); Rheumatoid Factor, Qnt <4 IU/mL (0-15)
[2020-11-21 10:37] LABS: HLA B27 NEGATIVE
[2020-11-21 11:48] LABS: Angiotensin-1 Converting Enz. 11 U/L (8-52)
[2020-11-21 14:47] LABS: C-ANCA <1:20 Titer (<1:20)
== END | disposition home or self-care (01) ==
LOC: LABWHC1 07:58
PROVIDERS: ATTEND Ophthalmology
DX: H20.9 Unspecified iridocyclitis (principal)
CPT/HCPCS: 36415; 82164; 85549; 85652; 86038; 86039; 86140; 86255; 86431; 86618; 86780; 86812

== ENCOUNTER → 2021-02-07 | Outpatient (CLI) | payer BC ==
[2021-02-09 02:52] LABS: African American GFR (CKD) 111.7 (60.0-200.0); Albumin 4.5 g/dL (3.8-4.9); Albumin/Globulin Ratio 2.5 (1.60-3.17); Anion Gap 13.7 mmol/L (4.00-12.00); BUN/Creat Ratio 14.5 Ratio (12.00-20.00); Blood Urea Nitrogen 11.6 mg/dL (9.0-27.0); Calcium 9.7 mg/dL (8.7-10.3); Carbon Dioxide 22.3 mmol/L (21.6-31.8); Chol/HDL Ratio 3.12 Ratio; Globulin 1.8 g/dL (1.6-3.3); HDL Cholesterol 42.3 mg/dL (40.00-60.00); LDL Cholesterol,Calculated 72.1 mg/dL (0.0-131.0); Non-African American GFR(CKD) 96.4 (60.0-200.0); Potassium 4.3 mmol/L (3.5-5.5); Total Bilirubin 0.4 mg/dL (0.30-1.20); Total Protein 6.3 g/dL (6.2-8.2); Triglycerides 87.9 mg/dL (0.00-149.00); VLDL Calculation 17.58 mg/dL (5.00-40.00)
== END | disposition home or self-care (01) ==
LOC: LABWHC1 08:14
PROVIDERS: ATTEND Family Medicine
DX: Z20.822 Contact with and (suspected) exposure to COVID-19 (principal); E11.9 Type 2 diabetes mellitus without complications
CPT/HCPCS: 36415; 80053; 80061; 83036; 86769

== ENCOUNTER → 2021-09-07 | Outpatient (CLI) | payer BC ==
[2021-09-07 14:34] LABS: HCT 44.2 % (39.6-50.0); HGB 14.3 g/dL (13.0-17.0); MCH 30.6 pg (27.0-32.0); MCHC 32.4 g/dL (32.0-37.0); MCV 94.6 fL (80.0-97.0); Mean Platelet Volume 10.6 fL (9.5-12.2); NRBC Per 100 WBC 0 /100 WBCS (0.0-0.0); Platelet Count 251 X 10*3/uL (140-440); RBC 4.67 X 10*6/uL (4.40-5.60); RDW 13.9 % (11.5-14.5); WBC 6.06 X 10*3/uL (4.50-10.00)
[2021-09-07 14:53] LABS: ALT 25 U/L (10-49); AST 26 U/L (14-35); African American GFR (CKD) 106.4 (60.0-200.0); Albumin 4.7 g/dL (3.8-4.9); Albumin/Globulin Ratio 2.06 (1.60-3.17); Alkaline Phosphatase 92 U/L (41-126); BUN/Creat Ratio 17.83 Ratio (12.00-20.00); Blood Urea Nitrogen 15.8 mg/dL (9.0-27.0); Calcium 9.6 mg/dL (8.7-10.3); Carbon Dioxide 24.7 mmol/L (20.0-27.5); Chloride 105 mmol/L (96-109); Chol/HDL Ratio 3.47 Ratio; Globulin 2.3 g/dL (1.6-3.3); Glucose 119 mg/dL (70-110); LDL Cholesterol,Calculated 101.3 mg/dL (0.0-131.0); Non-African American GFR(CKD) 91.8 (60.0-200.0); Potassium 4.4 mmol/L (3.5-5.5); Sodium 141 mmol/L (135-145); VLDL Calculation 13.26 mg/dL (5.00-40.00)
== END | disposition home or self-care (01) ==
LOC: LABWHC1 08:19
PROVIDERS: ATTEND Family Medicine
DX: Z00.01 Encounter for general adult medical examination with abnormal findings (principal); E11.65 Type 2 diabetes mellitus with hyperglycemia
CPT/HCPCS: 36415; 80053; 80061; 83036; 84153; 85027

== ENCOUNTER → 2022-09-11 | Outpatient (CLI) | payer BC ==
[2022-09-11 15:47] LABS: Basophils # (A) 0.03 X 10*3/uL (0.00-0.10); Basophils % (A) 0.4 %; Eosinophils # (A) 0.15 X 10*3/uL (0.04-0.35); HCT 44.6 % (39.6-50.0); HGB 14.5 g/dL (13.0-17.0); Immature Grans, Automated 0.1 %; Lymphocytes # (A) 2.05 X 10*3/uL (0.90-5.00); Lymphocytes % (A) 27.6 %; MCH 30.4 pg (27.0-32.0); MCHC 32.5 g/dL (32.0-37.0); MCV 93.5 fL (80.0-97.0); Mean Platelet Volume 10.6 fL (9.5-12.2); Monocytes # (A) 0.57 X 10*3/uL (0.20-1.00); Monocytes % (A) 7.7 %; NRBC Per 100 WBC 0 /100 WBCS (0.0-0.0); Neutrophils # (A) 4.61 X 10*3/uL (1.80-7.70); Neutrophils % (A) 62.2 %; Platelet Count 290 X 10*3/uL (140-440); RBC 4.77 X 10*6/uL (4.40-5.60); RDW 13.4 % (11.5-14.5); WBC 7.42 X 10*3/uL (4.50-10.00)
[2022-09-11 16:02] LABS: ALT 31 U/L (10-49); AST 25 U/L (14-35); African American GFR (CKD) 108.8 (60.0-200.0); Albumin 4.7 g/dL (3.8-4.9); Albumin/Globulin Ratio 2.28 (1.60-3.17); Alkaline Phosphatase 106 U/L (41-126); Blood Urea Nitrogen 13.2 mg/dL (9.0-27.0); Calcium 9.7 mg/dL (8.7-10.3); Carbon Dioxide 24.3 mmol/L (20.0-27.5); Chloride 105 mmol/L (96-109); Chol/HDL Ratio 3.17 Ratio; Globulin 2.1 g/dL (1.6-3.3); Glucose 107 mg/dL (70-110); LDL Cholesterol,Calculated 74.9 mg/dL (0.0-131.0); Non-African American GFR(CKD) 93.9 (60.0-200.0); Potassium 4.6 mmol/L (3.5-5.5); Sodium 142 mmol/L (135-145); Total Protein 6.7 g/dL (6.2-8.2)
[2022-09-11 23:20] LABS: Microalbumin Creatinine Ratio <30 mg/g Creat (0-30); Urine Creatinine 22.9 mg/dL (39.0-259.0)
== END | disposition home or self-care (01) ==
LOC: LABWHC1 08:37
PROVIDERS: ATTEND Family Medicine
DX: Z12.5 Encounter for screening for malignant neoplasm of prostate (principal); E11.9 Type 2 diabetes mellitus without complications
CPT/HCPCS: 36415; 80053; 80061; 82043; 82570; 83036; 84153; 84443; 85025

== ENCOUNTER → 2023-02-20 | Outpatient (CLI) | payer BC ==
[2023-02-20 11:30] LABS: ALT 51 U/L (10-49); AST 33 U/L (14-35); Albumin 4.7 d/dL (3.8-4.9); Albumin/Globulin Ratio 2.14 Ratio (1.60-3.17); Alkaline Phosphatase 103 U/L (41-126); BUN/Creat Ratio 20.71 Ratio (12.00-20.00); Blood Urea Nitrogen 14.5 mg/dL (9.0-27.0); Calcium 9.6 mg/dL (8.7-10.3); Carbon Dioxide 25.1 mmol/L (21.6-31.8); Chloride 105 mmol/L (96-109); Chol/HDL Ratio 3.32 Ratio; Globulin 2.2 d/dL (1.6-3.3); Glucose 122 mg/dL (70-110); Potassium 4.7 mmol/L (3.5-5.5); Sodium 141 mmol/L (135-145); Total Bilirubin 0.5 mg/dL (0.3-1.2); Total Protein 6.9 d/dL (6.2-8.2)
== END | disposition home or self-care (01) ==
LOC: LABWHC1 06:54
PROVIDERS: ATTEND Family Medicine
DX: E11.9 Type 2 diabetes mellitus without complications (principal)
CPT/HCPCS: 36415; 80053; 80061; 83036

== ENCOUNTER → 2023-09-13 | Outpatient (CLI) | payer OTHER ==
[2023-09-13 13:11] LABS: HCT 48.4 % (39.6-50.0); HGB 15.8 g/dL (13.0-17.0); MCH 31.3 pg (27.0-32.0); MCHC 32.6 g/dL (32.0-37.0); MCV 95.8 FL (80.0-97.0); Mean Platelet Volume 11.1 FL (9.5-12.2); NRBC Per 100 WBC 0 X 10*3/uL (0.00-0.01); Platelet Count 249 X 10*3/uL (140-440); RBC 5.05 X 10*6/uL (4.40-5.60); RDW 13.4 % (11.5-14.5); WBC 6.91 X 10*3/uL (4.50-10.00)
[2023-09-13 13:38] LABS: ALT 46 U/L (10-49); AST 31 U/L (14-35); Alkaline Phosphatase 104 U/L (41-126); BUN/Creat Ratio 14.62 Ratio (12.00-20.00); Blood Urea Nitrogen 11.7 mg/dL (9.0-27.0); Calcium 9.7 mg/dL (8.7-10.3); Carbon Dioxide 25.4 mmol/L (21.6-31.8); Chloride 108 mmol/L (96-109); Chol/HDL Ratio 3.11 Ratio; Glucose 132 mg/dL (70-110); LDL Cholesterol,Calculated 92.4 mg/dL (0.0-131.0); Potassium 4.5 mmol/L (3.5-5.5); Prostate Specific Antigen 1.34 ng/mL (0.000-4.500); Sodium 144 mmol/L (135-145); Total Bilirubin 0.6 mg/dL (0.3-1.2); VLDL Calculation 14.06 mg/dL (5.00-40.00)
[2023-09-13 23:13] LABS: Microalbumin Creatinine Ratio <70 mg/g Cr (0-30); Urine Creatinine 17.2 mg/dL (39.0-259.0)
== END | disposition home or self-care (01) ==
LOC: LABWHC1 08:32
PROVIDERS: ATTEND Family Medicine
DX: Z00.01 Encounter for general adult medical examination with abnormal findings (principal); E11.65 Type 2 diabetes mellitus with hyperglycemia
CPT/HCPCS: 36415; 80053; 80061; 82043; 82570; 83036; 84153; 84443; 85027

== ENCOUNTER → 2024-02-28 | Outpatient (CLI) | payer OTHER ==
[2024-02-28 13:37] LABS: ALT 39 U/L (10-49); AST 24 U/L (14-35); Albumin 4.6 g/dL (3.8-4.9); Albumin/Globulin Ratio 2.42 Ratio (1.60-3.17); Alkaline Phosphatase 95 U/L (41-126); BUN/Creat Ratio 14.22 Ratio (12.00-20.00); Blood Urea Nitrogen 12.8 mg/dL (9.0-27.0); Calcium 9.3 mg/dL (8.7-10.3); Carbon Dioxide 25.8 mmol/L (21.6-31.8); Chloride 106 mmol/L (96-109); Chol/HDL Ratio 3.09 Ratio; Globulin 1.9 g/dL (1.6-3.3); Glucose 145 mg/dL (70-110); LDL Cholesterol,Calculated 82.9 mg/dL (0.0-131.0); Potassium 4.5 mmol/L (3.5-5.5); Sodium 142 mmol/L (135-145); Total Bilirubin 0.6 mg/dL (0.3-1.2); Total Protein 6.5 g/dL (6.2-8.2); VLDL Calculation 17.88 mg/dL (5.00-40.00)
== END | disposition home or self-care (01) ==
LOC: LABWHC1 08:06
PROVIDERS: ATTEND Family Medicine
DX: E11.9 Type 2 diabetes mellitus without complications (principal)
CPT/HCPCS: 36415; 80053; 80061; 83036

== ENCOUNTER → 2024-09-16 | Outpatient (CLI) | payer MEDICARE, OTHER ==
[2024-09-16 14:48] LABS: HCT 45.5 % (39.6-50.0); MCH 30.2 pg (27.0-32.0); MCV 91.7 FL (80.0-97.0); Mean Platelet Volume 10.4 FL (9.5-12.2); NRBC Per 100 WBC 0 X 10*3/uL (0.00-0.01); Platelet Count 293 X 10*3/uL (140-440); RBC 4.96 X 10*6/uL (4.40-5.60); RDW 13.1 % (11.5-14.5); WBC 7.21 X 10*3/uL (4.50-10.00)
[2024-09-16 15:37] LABS: ALT 45 U/L (10-49); AST 29 U/L (14-35); Albumin 4.7 g/dL (3.8-4.9); Albumin/Globulin Ratio 2.04 Ratio (1.60-3.17); Alkaline Phosphatase 113 U/L (41-126); BUN/Creat Ratio 13.11 Ratio (12.00-20.00); Blood Urea Nitrogen 11.8 mg/dL (9.0-27.0); Calcium 9.8 mg/dL (8.7-10.3); Carbon Dioxide 24.1 mmol/L (21.6-31.8); Chloride 103 mmol/L (96-109); Chol/HDL Ratio 3.14 Ratio; Globulin 2.3 g/dL (1.6-3.3); Glucose 168 mg/dL (70-110); LDL Cholesterol,Calculated 81.6 mg/dL (0.0-131.0); Potassium 4.8 mmol/L (3.5-5.5); Prostate Specific Antigen 1.61 ng/mL (0.000-4.500); Sodium 140 mmol/L (135-145); Total Bilirubin 0.7 mg/dL (0.3-1.2); VLDL Calculation 19.28 mg/dL (5.00-40.00)
[2024-09-16 18:08] LABS: Microalbumin Creatinine Ratio <42 mg/g Cr (0-30); Urine Creatinine 28.9 mg/dL (39.0-259.0)
== END | disposition home or self-care (01) ==
LOC: LABWHC1 08:05
PROVIDERS: ATTEND Family Medicine
DX: Z00.01 Encounter for general adult medical examination with abnormal findings (principal); E66.3 Overweight; N40.1 Benign prostatic hyperplasia with lower urinary tract symptoms; R53.83 Other fatigue
CPT/HCPCS: 36415; 80053; 80061; 82043; 82570; 83036; 84153; 85027